=== PATIENT | male | born 1960 | race Caucasian/White ===

== ENCOUNTER 2023-11-16 11:42 | Outpatient (CLI) | payer OTHER | END 2023-11-16 11:47 | disposition home or self-care (01) | LOC: RAD 11:42 | PROVIDERS: ATTEND Physical Medicine & Rehabilitation | DX: M54.17 Radiculopathy, lumbosacral region (principal) ==

== ENCOUNTER 2025-03-06 15:38 | Emergency (ER) | payer OTHER ==
[~2025-03-06] VITALS: Ht 193 cm; Wt 111.1 kg
[2025-03-06] MEDS ORDERED: METFORMIN HCL750 MG PO (16:14)
[2025-03-06] MEDS ORDERED: FOSINOPRIL-HCT1 EACH PO (16:14)
[2025-03-06] MEDS ORDERED: EDLUAR10 MG SL (16:15)
[2025-03-06] MEDS ORDERED: OZEMPIC1 MG/0.71 SQ (16:15)
[2025-03-06] MEDS ORDERED: LEVOTHYROXINE13 MCG PO (16:16)
[2025-03-06] MEDS ORDERED: CYTOMEL50 MCG (16:16)
[2025-03-06] MEDS ORDERED: CLONIDINE HCL0.1 M1 PO (16:16)
[2025-03-06] MEDS ORDERED: DEXAMETHASONE SODIUM PHOSPHATE 4 MG/ML VIAL IV ONE (16:45)
[2025-03-06] MEDS ORDERED: KETOROLAC TROMETHAMINE 30 MG VIAL IV ONE (16:45)
[2025-03-06] MEDS ORDERED: ORPHENADRINE CITRATE 30 MG/ML AMPUL IV ONE (16:45)
[2025-03-06] MEDS ORDERED: ORPHENADRINE CITRATE 30 MG/ML AMPUL ONE (18:00)
[2025-03-06] MEDS ORDERED: DEXAMETHASONE SODIUM PHOSPHATE 4 MG/ML VIAL ONE (18:00)
[2025-03-06] MEDS ORDERED: KETOROLAC TROMETHAMINE 30 MG VIAL ONE (18:00)
[2025-03-06 18:08] LABS: BASO % 0.4 % (0.1-1.2); EOS # 0.34 (0.04-0.54); EOS % 3.1 % (0.7-7.0); LYMPH # 1.87 (1.18-3.74); LYMPH % 17.0 % (19.3-53.1); MEAN PLATELET VOLUME 10.20 fl (9.4-12.4); MONO # 0.72 (0.24-0.82); MONO % 6.5 % (4.7-12.5); NEUT # 8.02 (1.56-6.13); NEUT % 72.8 % (34.0-71.1); RED CELL DISTRIBUTION WIDTH 15.0 % (11.6-14.4)
[2025-03-06 18:45] LABS: ALT/SGPT 26.0 U/L (12-78); AST/SGOT 19.0 U/L (15-37); BILIRUBIN TOTAL 1.27 mg/dL (0.3-1.2); BUN CREA RATIO 23.0 (7.0-25.0); CREATININE SERUM 0.82 mg/dL (0.70-1.30); GFR 94.89; GLOBULINA 3.7 G/DL (2.4-3.5); GLUCOSE FASTING 106.0 mg/dL (65-100); OSMOLALITY SERUM 282.0 MOSM/KG (275-295)
[2025-03-06] MEDS ORDERED: BARIUM SULFATE 450 ML ORAL.SUSP PO ONE (20:09)
[2025-03-06 23:08] LABS: URINE APPEARANCE Clear; URINE BILIRRUBIN Small (NEGATIVE); URINE BLOOD Negative; URINE COLOR Dark Yellow; URINE GLUCOSE Negative (NEGATIVE); URINE KETONE Trace (NEGATIVE); URINE LEUKOCYTE Trace; URINE NITRATE Negative; URINE PROTEIN 30 (NEGATIVE); URINE UROBILINOGEN 1.0 E.U./dl
[2025-03-06 23:12] LABS: URINE BACTERIA 10.7 uL (0.0-1933); URINE EPITHELIAL CELLS 4.4 uL (0.0-38.8); URINE RBC 17.7 uL (0.0-20.8)
[2025-03-06] MEDS ORDERED: 0.9 % SODIUM CHLORIDE 1,000 ML IV SCH (23:30)
[2025-03-06 23:32] LABS: URINE CAST 1.17 uL (0.0-1.40); URINE WBC 1.5 uL (0.0-23.2)
[2025-03-07] MEDS ORDERED: GUAIFENESIN 200 MG/10 ML BLIST.PACK PO ONE ×2 (00:54→01:00)
[2025-03-07] MEDS ORDERED: KETOROLAC TROMETHAMINE 30 MG VIAL ONE ×3 (00:54→12:28)
[2025-03-07] MEDS ORDERED: KETOROLAC TROMETHAMINE 30 MG VIAL IV ONE (01:00)
[2025-03-07] MEDS ORDERED: NIFEDIPINE 10 MG CAPSULE PO ONE (02:07)
[2025-03-07] MEDS ORDERED: NIFEDIPINE 10 MG CAPSULE PO STA (02:18)
[2025-03-07] MEDS ORDERED: KETOROLAC TROMETHAMINE 30 MG VIAL IV STA (08:28)
[2025-03-07] MEDS ORDERED: LISINOPRIL 10 MG TABLET PO ONE (08:45)
[2025-03-07] MEDS ORDERED: KETOROLAC TROMETHAMINE 30 MG VIAL IM STA (12:11)
[2025-03-07] MEDS ORDERED: KETO10TA2 PO (12:13)
== END 2025-03-07 14:08 | disposition home or self-care (01) ==
LOC: ER 15:39
PROVIDERS: Student in an Organized Health Care Education/Training Program
DX: S22.39XA Fracture of one rib, unspecified side, initial encounter for closed fracture (principal); W19.XXXA Unspecified fall, initial encounter; Y93.89 Activity, other specified; Y92.89 Other specified places as the place of occurrence of the external cause; Y99.8 Other external cause status; J94.2 Hemothorax; J93.9 Pneumothorax, unspecified; I10 Essential (primary) hypertension; E11.9 Type 2 diabetes mellitus without complications; Z79.84 Long term (current) use of oral hypoglycemic drugs
CPT/HCPCS: 36415; 71250; 71260; 73090; 73120; 74177; 82803; Q9965